=== PATIENT | female | born 2000 | race Caucasian/White ===

== ENCOUNTER 2019-01-02 14:55 | Emergency (ER) | payer OTHER, SELFPAY ==
[2019-01-02] MEDS ORDERED: Water For Inject, Bacteriostat 30 ML ONE (15:25)
[2019-01-02] MEDS ORDERED: diphenhydrAMINE 50 MG/ML VIAL ONE (15:25)
[2019-01-02] MEDS ORDERED: methylPREDNISolone Sod Succ/PF 125 MG/2 ML VIAL ONE (15:25)
== END 2019-01-02 17:05 | disposition home or self-care (01) ==
LOC: SCSER 14:55
DX: T78.1XXA Other adverse food reactions, not elsewhere classified, initial encounter (principal)
CPT/HCPCS: 96361; 96374; 96375; J1200; J2930